=== PATIENT | female | born 1980 | race Caucasian/White ===

== ENCOUNTER → 2020-03-16 | Outpatient (CLI) | payer OTHER ==
--- NOTE | 2020-03-24 09:24 | REP ---
RIGHT FIRST DIGIT HISTORY: Trauma after a fall. TECHNIQUE: Four views of the right first digit are performed. FINDINGS: There is no evidence of acute fracture, dislocation, or intrinsic bone disease. The joint spaces appear unremarkable. IMPRESSION: No acute fracture or dislocation. MTDD
== END ==
LOC: M WUC 14:43
PROVIDERS: ATTEND Nurse Practitioner Family
DX: M79.644 Pain in right finger(s) (principal)

== ENCOUNTER 2020-09-28 06:00 | Inpatient (IN) | payer OTHER ==
[~2020-09-28] VITALS: Ht 160 cm; Wt 49.9 kg
[2020-09-28] VITALS (8 sets, daily range): BP systolic 96–118; BP diastolic 54–71
[~2020-09-28 06:00] MED LIST: ADDY1TAB PO; DIAZ2TAB PO; LIDOCAINE 1% MDV 20ML VIAL SQ PRN; MYRB25TA PO; VITMTA PO
[2020-09-28 06:48] LABS: HEMATOCRIT 42.4 % (36.0-47.0); HEMOGLOBIN 14.2 g/dl (12.0-15.5); MEAN CORPUSCULAR HEMOGLOBIN 33.4 pg (27.0-33.0); MEAN CORPUSCULAR HGB CONC 33.5 g/dl (32.0-36.5); MEAN CORPUSCULAR VOLUME 99.8 fl (80.0-96.0); PLATELET COUNT, AUTOMATED 195 10^3/uL (150-450); RED BLOOD COUNT 4.25 10^6/uL (4.00-5.40)
[2020-09-28] MEDS ORDERED: LR 1,000 ML IV ONE (07:00)
[2020-09-28] MEDS ORDERED: ceFAZolin SOD 2 GM in IV 1 EA IV ONE (07:00)
[2020-09-28] MEDS ORDERED: ACETAMINOPHEN 500 MG TAB PO ONE (07:00)
[2020-09-28] MEDS ORDERED: GABAPENTIN 300 MG CAP PO ONE (07:00)
[2020-09-28] MEDS ORDERED: BUPIVACAINE HCL 0.5% 30 ML VIAL As Ordered ONE (07:07)
[2020-09-28] MEDS ORDERED: FLUORESCEIN 10% (100MG/ML) 5 ML VIAL As Ordered ONE (07:07)
[2020-09-28 07:10] LABS: BLOOD UREA NITROGEN 10 MG/DL (7-18); CALCIUM LEVEL 8.8 MG/DL (8.5-10.1); CARBON DIOXIDE LEVEL 30 MEQ/L (21-32); CHLORIDE LEVEL 108 MEQ/L (98-107); CREATININE FOR GFR 0.62 MG/DL (0.55-1.30); GLOMERULAR FILTRATION RATE > 60.0 (>60); GLUCOSE, FASTING 91 MG/DL (70-100); POTASSIUM SERUM 4.4 MEQ/L (3.5-5.1); SODIUM LEVEL 142 MEQ/L (136-145)
[2020-09-28 07:14] LABS: HCG, SERUM QUALITATIVE NEGATIVE (NEGATIVE)
[2020-09-28] MEDS ORDERED: KETOROLAC 60MG 2ML VIAL As Ordered ONE (07:14)
[2020-09-28] MEDS ORDERED: LIDOCAINE 2% 100MG/5ML SDV (FOR ANES.) As Ordered ONE (07:14)
[2020-09-28] MEDS ORDERED: ACETAMINOPHEN 1000MG 100ML IV BTL (OFIRMEV) (J0131 PER 10MG) As Ordered ONE (07:14)
[2020-09-28] MEDS ORDERED: dexameTHASONE 4 MG/ML 1ML VIAL (J1100 PER 1MG) As Ordered ONE (07:14)
[2020-09-28] MEDS ORDERED: ONDANSETRON 4MG/2ML VIAL As Ordered ONE (07:14)
[2020-09-28] MEDS ORDERED: ROCURONIUM BROMIDE 50 MG/5 ML VIAL As Ordered ONE ×2 (07:14→08:36)
[2020-09-28] MEDS ORDERED: propofoL 200 MG/20 ML VIAL As Ordered ONE (07:14)
[2020-09-28] MEDS ORDERED: MIDAZOLAM INJ 2MG/2ML VIAL (J2250 PER 1MG) As Ordered ONE (07:15)
[2020-09-28] MEDS ORDERED: fentaNYL 100 MCG/2 ML INJECTION (J3010) As Ordered ONE ×2 (07:15→09:59)
[2020-09-28] MEDS ORDERED: SUGAMMADEX SODIUM 500 MG/5 ML VIAL (BRIDION) As Ordered ONE ×2 (07:17→09:18)
[2020-09-28] MEDS ORDERED: SCOPOLAMINE 1MG TRANSDERMAL PATCH As Ordered ONE (07:30)
[2020-09-28] MEDS ORDERED: SCOPOLAMINE 1MG TRANSDERMAL PATCH TOP ONE (07:40)
[2020-09-28] MEDS ORDERED: ePHEDrine SULFATE 25 MG/5 ML(5MG/ML) SYRINGE As Ordered ONE (08:06)
[2020-09-28] MEDS ORDERED: LIDOCAINE W/EPINEPHRINE 1% 20ML VIAL As Ordered ONE (08:14)
[2020-09-28] MEDS ORDERED: PERCOCET 5MG/325MG TAB PO PRN (09:50)
[2020-09-28] MEDS ORDERED: PROMETHAZINE INJ 25 MG/ML VIAL (J2550) IV PRN (09:50)
[2020-09-28] MEDS ORDERED: LR 1,000 ML IV SCH ×2 (09:50→10:05)
[2020-09-28] MEDS: fentaNYL 100 MCG/2 ML INJECTION (J3010) IV PRN ×8 (10:00→10:55)
[2020-09-28] MEDS ORDERED: METOCLOPRAMIDE INJ 10MG/2ML VIAL (J2765 PER 1) IV PRN (10:05)
[2020-09-28] MEDS ORDERED: ONDANSETRON 4MG/2ML VIAL IV PRN (10:05)
[2020-09-28] MEDS: MEPERIDINE INJ 25 MG/ML VIAL (J2175) IV PRN ×2 (10:12→10:18)
[2020-09-28] MEDS: oxyCODONE 5MG TAB PO PRN ×2 (10:35→11:16)
--- NOTE | 2020-09-28 12:18 | RO ---
OPERATIVE NOTE DATE OF OPERATION: 09/28/2020 PREOPERATIVE DIAGNOSIS: Severe dysmenorrhea and severe dyspareunia. POSTOPERATIVE DIAGNOSIS: Severe dysmenorrhea and severe dyspareunia, stage 2 uterine prolapse. PROCEDURE: Transvaginal hysterectomy with bilateral salpingectomy and cystoscopy. SURGEON: Pepe Lopez DO AUTOMATIC SILK SCREEN PRINTER: Dr. Chatman ANESTHESIA: General anesthesia. IV FLUIDS: 1 liter LR. URINE OUTPUT: 50 mL via Somers catheter. EBL: 25 mL. ANTIBIOTICS: 2 gm Ancef before case start. OPERATIVE FINDINGS: Pelvic exam revealed a mobile, anteverted 8 weeks sized uterus with excellent descent and stage 2 uterine prolapse. Ovaries appeared normal bilaterally in addition to normal fallopian tubes. Cystoscopy at case conclusion demonstrated an intact bladder with no lesions, suture, or defects and brisk efflux of urine from each ureteral orifice. DESCRIPTION OF PROCEDURE: The risks, benefits, indications, and alternatives to the procedure were reviewed with the patient and informed consent was obtained. The patient was taken to the operating room where general anesthesia was obtained without difficulty. The patient was then placed in the lithotomy position using gel padded Jaylon stirrups. An examination under anesthesia was then performed and was significant for mobile 8 weeks size anteverted uterus with excellent descent and stage 2 uterine prolapse. The patient was then prepped and draped in usual sterile fashion and a Somers catheter was placed. A surgical time out was then performed and the patient's identity and planned procedure were verified with the operative team. The decision was made to proceed with transvaginal hysterectomy. A weighted speculum was then placed in the patient's vagina and the cervix was visualized. Two Posadas tenacula were used to grasp the anterior and posterior lips of the cervix. The cervix was then injected circumferentially into the anterior and posterior vaginal fornices with 1% Lidocaine with Epinephrine. The cervix was then incised circumferentially using Bovie electrocautery. The posterior vaginal mucosa was then dissected off the cervix with a moistened Ray-Sowmya. The peritoneum was then visualized, grasped with pickups, and entered sharply using Orozco scissors. The posterior peritoneum was then tagged to the vaginal mucosa with #0 Vicryl suture. Attention was then turned anteriorly. The anterior vaginal mucosa was grasped in the midline using Allis clamps. The mucosa was dissected off the underlying pubocervical fascia using a moistened Ray-Sowmya. The anterior cul-de-sac was then entered sharply with Metzenbaum scissors. Retractors were then placed into the anterior and posterior cul-de-sacs to allow excellent exposure while displacing the bladder and rectum away from the operative field. The uterosacral ligaments were then clamped with Pushpa clamps on both sides, transected, and suture ligated with #0 Vicryl. The cardinal ligaments were then clamped on both sides, transected, and suture ligated bilaterally in a similar fashion. The uterine arteries and broad ligament were then serially clamped with Pushpa clamps, transected, and suture ligated on both sides. Excellent hemostasis was noted throughout this process. The uterine cornea were then visualized bilaterally, doubly clamped, transected and the uterus and cervix were delivered without difficulty and sent off the field. The pedicles were then suture ligated with excellent hemostasis achieved. The ovaries were visualized and appeared normal. Both fallopian tubes were then grasped with a john, clamped, transected and suture ligated on both sides. The fallopian tube segments were then handed off the field. After completion of the hysterectomy and bilateral salpingectomy, all pedicles from the uterosacral ligaments to the cornua were examined bilaterally and hemostasis was confirmed. A modified Connell's culdoplasty was then performed using #0 Vicryl suture by incorporating the uterosacral ligaments and posterior peritoneum. The vaginal cuff and peritoneum were then closed using #0 Vicryl in a running fashion with care given to incorporate the vaginal mucosa, underlying fascia, and peritoneal edges on both the anterior and posterior sides. After closure of the vaginal cuff the vagina was irrigated with warm saline. Inspection of the cuff assured hemostasis. All instruments were then removed from the patient's vagina. A cystoscopy was then performed. The patient's Somers catheter was removed. The cystoscope was advanced through the cervix into the patient's bladder and the bladder was distended with warm saline. After distention of the bladder with saline, a systematic examination of the bladder was performed. Examination revealed no lesions, defects, or sutures within the bladder. Brisk efflux of fluorescein stained urine was seen from each ureteral orifice. The cystoscope was then removed and the Somers catheter was replaced. Again, inspection of the cuff revealed excellent hemostasis and irrigation was performed to good effect. All instruments were then confirmed to have been removed from the vagina. A vaginal exam demonstrated excellent suspension and elevation of the cuff. At the completion of the case, the sponge, instrument, and needle counts were correct x2. The patient was taken to the PACU in stable condition. QUENTIN
[2020-09-28] MEDS: PERCOCET 5MG/325MG TAB PO PRN ×2 (13:50→19:51)
[2020-09-28] MEDS ORDERED: diazePAM 2 MG TAB PO ONE (15:15)
[2020-09-28] MEDS: KETOROLAC 30 MG/ML 1ML VIAL IV SCH ×2 (16:03→21:56)
[2020-09-28] MEDS: DOCUSATE SODIUM 100MG CAPSULE PO SCH (19:52)
[2020-09-28] MEDS ORDERED: diazePAM 2 MG TAB PO PRN (20:00)
[2020-09-29 04:18] VITALS: BP 92/56
[2020-09-29] MEDS: KETOROLAC 30 MG/ML 1ML VIAL IV SCH (04:19)
[2020-09-29] MEDS ORDERED: PERCOCET PO (06:31)
[2020-09-29] MEDS ORDERED: DOK1CAP7 PO (06:31)
[2020-09-29] MEDS ORDERED: IBUP80TA PO (06:31)
--- NOTE | 2020-09-29 06:32 | DS.PDOC ---
Discharge Summary General Date of Admission Sep 28, 2020 at 06:00 Date of Discharge Sep 29, 2020 Discharge Summary HOSPITAL COURSE: Ms. Mederos is a 39 yo female who underwent an uncomplicated, scheduled Transvaginal hysterectomy, bilateral salpingectomy and cystoscopy on [id number] for severe dysmenorrhea and dyspareunia. Her post operative course was unremarkable. On her day of discharge she met all appropriate discharge criteria. She was ambulating, voiding, tolerating a regular diet, passing gas, and her pain was well controlled with PO pain medications. DISCHARGE MEDICATIONS: Please see below. ALLERGIES: Please see below. PHYSICAL EXAMINATION ON DISCHARGE: VITAL SIGNS: Please see below. GENERAL: AAOX3, NAD ABDOMINAL EXAMINATION: Abdomen soft, nondistended. Minimal tenderness to pal pation. Bowel sounds present EXTREMITIES: No edema PSYCHIATRIC EXAMINATION: Affect appropriate LABORATORY DATA: Please see below. ACTIVITY: Pelvic rest for 6 weeks DIET: Regular DISCHARGE PLAN: Discharge home DISPOSITION: Discharge home on [id number] . DISCHARGE INSTRUCTIONS: Postoperatively, you should expect significant pelvic discomfort. We will provide oral pain medications, typically an anti-inflammatory (motrin) and an oral narcotic (percocet or vicodin). It is recommended to take the anti- inflammatory medication three times daily, using the narcotic medication as need ed in addition. Sometimes, narcotic medications can cause constipation, and we recommend using a stool softener, drinking plenty of water, increasing the fiber in your diet, and drinking prune juice if constipation becomes a significant issue. Bleeding: Some bleeding is expected. Typically, the bleeding should be very light. The bleeding should taper off over the first 2 weeks following surgery. The bleeding may change to a dark brown color. If you have bleeding where you soak a maxi-pad per hour for more than one hour, please contact the clinic or come to the Emergency Room. Precautions: Please contact the [facility] or the Emergency Room after hours for any of the following symptoms, * Fever (temperature > 101F) * Significant pain not controlled with oral pain medications * Heavy vaginal bleeding saturating a pad per hour for 2 hours or more * Significant nausea and vomiting with inability to tolerate any food or medication * Foul-smelling bleeding or vaginal discharge Return to normal: You should be able to resume normal activities and exercise within 6 weeks. You may resume sexual activity 6-8 weeks after surgery unless instructed otherwise by your doctor. ITEMS TO FOLLOWUP ON ON OUTPATIENT: 1. post op appointment in 2 weeks DISCHARGE CONDITION: Stable. TIME SPENT ON DISCHARGE: Greater than 20 minutes. Kye Lopez DO Vital Signs/I&Os Vital Signs Date Time Temp Pulse Resp B/P (MAP) Pulse Ox O2 Delivery O2 Flow Rate FiO2 09/29/20 04:18 99.0 63 18 92/56 (68) 99 Room Air 09/28/20 13:46 2.0 I&O- Last 24 Hours up to 6 AM 09/29/20 06:00 Intake Total 7995 ml Output Total 4125 ml Balance 3870 ml Laboratory Data Labs 24H Laboratory Tests 2 09/28/20 06:34: Nucleated Red Blood Cells % (auto) 0.0, Anion Gap 4L, Glomerular Filtration Rate > 60.0, Calcium Level 8.8, Human Chorionic Gonadotropin, Qual NEGATIVE CBC/BMP Laboratory Tests 09/28/20 06:34 Discharge Medications Scheduled Docusate Sodium (Dok) 100 Mg Capsule, 100 MG PO BID Ibuprofen (Ibuprofen) 800 Mg Tablet, 800 MG PO Q8H Mirabegron (Myrbetriq) 25 Mg Tab.er.24h, 25 MG PO DAILY, (Reported) Multivitamins (Thera M Plus Tablet) 1 Each Tablet, 1 TAB PO DAILY, (Reported) Scheduled PRN Diazepam (Diazepam) 2 Mg Tablet, 0.5 MG PO DAILYPRN PRN for ANXIETY/AGITATION, (Reported) Oxycodone/Acetaminophen (Oxycodone-Acetaminophen 5-325) 1 Each Tablet, 1 TAB PO Q4H PRN for MILD/MODERATE PAIN (PS 1-7) Allergies Coded Allergies: No Known Allergies (Unverified , 09/28/20) KYE LOPEZ DO Sep 29, 2020 06:32
[2020-09-29 07:44] LABS: BASO % 0.1 % (0.0-1.0); EOS # 0.1 10^3/uL (0.0-0.5); EOS % 1.3 % (0.0-3.0); HEMATOCRIT 33.8 % (36.0-47.0); LYMPH # 2.3 10^3/uL (1.5-5.0); LYMPH % 30.8 % (24.0-44.0); MEAN CORPUSCULAR HEMOGLOBIN 33.9 pg (27.0-33.0); MEAN CORPUSCULAR HGB CONC 33.1 g/dl (32.0-36.5); MEAN CORPUSCULAR VOLUME 102.4 fl (80.0-96.0); MONO # 0.6 10^3/uL (0.0-0.8); MONO % 8.6 % (2.0-8.0); NEUTROPHILS # 4.4 10^3/uL (1.5-8.5); NEUTROPHILS % 58.9 % (36.0-66.0); PLATELET COUNT, AUTOMATED 135 10^3/uL (150-450); WHITE BLOOD COUNT 7.4 10^3/uL (4.0-10.0)
[2020-09-29 07:48] LABS: HEMOGLOBIN 11.2 g/dl (12.0-15.5)
[2020-09-29 08:00] VITALS: BP 102/59
[2020-09-29] MEDS: PERCOCET 5MG/325MG TAB PO PRN (09:31)
[2020-09-29] MEDS: DOCUSATE SODIUM 100MG CAPSULE PO SCH (09:31)
[2020-09-29] MEDS ORDERED: IBUPROFEN 800 MG TAB PO SCH (12:00)
== END 2020-09-29 11:05 | disposition home or self-care (01) | DRG 743 ==
LOC: M OR 06:00 → M PED 12:00
PROVIDERS: ADMIT Obstetrics & Gynecology; ATTEND Obstetrics & Gynecology
PROC: 0UTC7ZZ Resection of Cervix, Via Natural or Artificial Opening (ICD-10-PCS; 2020-09-28)
PROC: 0UT77ZZ Resection of Bilateral Fallopian Tubes, Via Natural or Artificial Opening (ICD-10-PCS; 2020-09-28)
PROC: 0TJB8ZZ Inspection of Bladder, Via Natural or Artificial Opening Endoscopic (ICD-10-PCS; 2020-09-28)
PROC: 0UT97ZZ Resection of Uterus, Via Natural or Artificial Opening (ICD-10-PCS; principal; 2020-09-28 07:30)
DX: N81.2 Incomplete uterovaginal prolapse (principal); N94.6 Dysmenorrhea, unspecified; Z79.899 Other long term (current) drug therapy

== ENCOUNTER 2021-11-15 09:42 | Emergency (ER) | payer OTHER ==
[~2021-11-15] VITALS: Ht 160 cm; Wt 57.1 kg
[~2021-11-15 09:42] MED LIST changes: +DOK1CAP4 PO; +IBUP80TA PO; -LIDOCAINE 1% MDV 20ML VIAL SQ PRN; +PERCOCET PO
[2021-11-15] MEDS ORDERED: KETOROLAC 30 MG/ML 1ML VIAL IV ONE (10:15)
[2021-11-15 10:43] LABS: BASO % 0.3 % (0.0-1.0); EOS # 0.1 10^3/uL (0.0-0.5); EOS % 1.7 % (0.0-3.0); HEMATOCRIT 40.9 % (36.0-47.0); HEMOGLOBIN 13.9 g/dl (12.0-15.5); LYMPH # 1.4 10^3/uL (1.5-5.0); LYMPH % 23.8 % (24.0-44.0); MEAN CORPUSCULAR HEMOGLOBIN 33.4 pg (27.0-33.0); MEAN CORPUSCULAR VOLUME 98.3 fl (80.0-96.0); MONO # 0.6 10^3/uL (0.0-0.8); MONO % 9.7 % (2.0-8.0); NEUTROPHILS # 3.8 10^3/uL (1.5-8.5); NEUTROPHILS % 64.3 % (36.0-66.0); PLATELET COUNT, AUTOMATED 173 10^3/uL (150-450); RED BLOOD COUNT 4.16 10^6/uL (4.00-5.40); WHITE BLOOD COUNT 5.9 10^3/uL (4.0-10.0)
[2021-11-15 11:31] LABS: ALBUMIN 3.9 GM/DL (3.2-5.2); BILIRUBIN,DIRECT 0.3 MG/DL (0.0-0.2); BILIRUBIN,TOTAL 0.9 MG/DL (0.2-1.0); FREE T4 0.82 NG/DL (0.76-1.46); THYROID STIMULATING HORMONE 1.69 uIU/ML (0.358-3.740); TOTAL PROTEIN 6.9 GM/DL (6.4-8.2)
[2021-11-15] MEDS ORDERED: ISOVUE-370 76% 100ML VIAL As Ordered ONE (11:52)
[2021-11-15 13:57] VITALS: BP 125/70
== END 2021-11-15 14:11 | disposition home or self-care (01) ==
LOC: M ED 09:42
DX: M94.0 Chondrocostal junction syndrome [Tietze] (principal); K76.89 Other specified diseases of liver; F41.9 Anxiety disorder, unspecified; Z79.899 Other long term (current) drug therapy
CPT/HCPCS: 71045; 71275; 80047; 80076; 83690; 84439; 84443; 84484; 85025; 93005; 93041; 94760; 96374; 99285; J1885; Q9967